=== PATIENT | female | born 1995 | race Caucasian/White ===

== ENCOUNTER 2018-01-21 12:12 | Emergency (ER) | payer OTHER, SELFPAY ==
--- NOTE | 2018-01-21 12:17 | ED.BACK ---
HPI - Back Pain/Injury <Ping Reed PA-C - Last Filed: 01/21/18 18:15> General Chief Complaint: Back Pain/Injury Stated Complaint: BACK PAIN Time Seen by Provider: 01/21/18 12:16 Source: patient Mode of arrival: ambulatory Limitations: no limitations History of Present Illness HPI Narrative: This generally healthy 23-year-old comes in today due to onset of low back pain at work over the last 2 days. 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 She denies any other trauma. She states that she occasionally has shooting pain in her left side for a long time, no changes there. She states that she has not had any weakness or paresthesia in her extremities. Pain can radiate into her mid back a little bit but not down in all into the gluteal area or legs. She has not had any bowel or bladder habit changes. She has not had any new fever. She denies any other new symptoms on systems review. She denies any possibility of due to abstinence currently. Related Data Previous Rx's Medication Instructions Recorded albuterol sulfate [Ventolin HFA] 2 puff INH Q4HP PRN #1 ea 07/12/17 fluticasone [Flovent HFA] 1 puff INH BID #1 inh 10/21/17 cyclobenzaprine 10 mg PO Q8H PRN #14 tab 01/21/18 naproxen 500 mg PO Q12H PRN #20 tab 01/21/18 Allergies Allergy/AdvReac Type Severity Reaction Status Date / Time No Known Allergies Allergy Uncoded 11/27/17 12:18 Review of Systems <Ping Reed PA-C - Last Filed: 01/21/18 18:15> Review of Systems All systems reviewed & are unremarkable except as noted in HPI and below Exam <Ping Reed PA-C - Last Filed: 01/21/18 18:15> Narrative Exam Narrative: GENERAL APPEARANCE: Patient sitting comfortably, in no distress. DERM: No exanthem MUSCULOSKELETAL: No point tenderness over the lumbar spine. Tender throughout the lumbar musculature bilaterally, left more than right. Muscles are somewhat tight palpably. Reduced seated trunk range of motion in all matos secondary to tenderness. Normal sit:stand and gait. Lower extremity strength 5/5 bilateral hip flexors, knee extensors, foot plantar flexion. Negative modified straight leg raise NEUROLOGIC: Bilateral patellar and Achilles DTRs 1+ with distraction Initial Vital Signs Initial Vital Signs: Vital Signs Temperature 98.1 F 01/21/18 12:25 Pulse Rate 92 H 01/21/18 12:25 Respiratory Rate 16 01/21/18 12:25 Blood Pressure 133/94 H 01/21/18 12:25 Pulse Oximetry 100 01/21/18 12:25 <Shahab Crowe MD - Last Filed: 02/20/18 06:54> Initial Vital Signs Initial Vital Signs: Vital Signs Temperature 98.1 F 01/21/18 12:25 Pulse Rate 92 H 01/21/18 12:25 Respiratory Rate 16 01/21/18 12:25 Blood Pressure 133/94 H 01/21/18 12:25 Pulse Oximetry 100 01/21/18 12:25 Course <Ping Reed PA-C - Last Filed: 01/21/18 18:15> Hospital Course: Patient was given instructions and work note re: light duty and L & I paperwork completed prior to d/c Vital Signs - 8 hr 01/21/18 12:25 Temperature 98.1 F Pulse Rate 92 H Respiratory Rate 16 Blood Pressure 133/94 H Pulse Oximetry 100 <Shahab Crowe MD - Last Filed: 02/20/18 06:54> Vital Signs - 8 hr 01/21/18 12:25 Temperature 98.1 F Pulse Rate 92 H Respiratory Rate 16 Blood Pressure 133/94 H Pulse Oximetry 100 Discharge Plan Departure Patient Disposition: Home, Self-Care Clinical Impression: Acute myofascial strain of lumbar region Discharge Date/Time: 01/21/18 13:15 Interventions: ED Discharge Assessment Last Done: 01/21/18 13:14 Instructions: DI for Back Strain or Sprain Activity Restrictions/Additional Instructions: Take prescription anti-inflammatory naproxen twice daily (not with other NSAIDs), and take the muscle relaxant cyclobenzaprine as needed (do not take the cyclobenzaprine and drive as that can make you sleepy). You should return if you have any acutely worsening symptoms, otherwise you should do light duty at work as we talked about. Follow up with your PCP next week to assess progress and see whether further treatment, such as physical therapy is needed Prescriptions: New naproxen 500 mg tablet 500 mg PO Q12H PRN (Reason: pain) Qty: 20 RF: 0 cyclobenzaprine 10 mg tablet 10 mg PO Q8H PRN (Reason: back pain/spasm) Qty: 14 RF: 0 No Action albuterol sulfate [Ventolin HFA] 90 MCG/PUFF HFA aerosol inhaler 2 puff INH Q4HP PRNQty: 1 RF: 1 fluticasone [Flovent HFA] 12 GM HFA aerosol inhaler 1 puff INH BID Qty: 1 RF: 1 Referrals: Alesia Knutson MD [Primary Care Provider] - Stand Alone Forms: Work/School Restrictions <Shahab Crowe MD - Last Filed: 02/20/18 06:54> Cosign ED Attending Cosignature Attestation: The PA/[employer]ER functioned independently for the care of this pt, I was available, but not asked to participate in care. I am unable to determine appropriateness of management without personally examining the pt.
[2018-01-21 12:25] VITALS: BP 133/94; PULSE 92; RESP 16; TEMP 36.7; O2SAT 100; BMI 25.8
== END 2018-01-21 13:15 | disposition home or self-care (01) ==
PROVIDERS: Emergency Provider Internal Medicine; PCP Family Medicine
DX: S39.012A Strain of muscle, fascia and tendon of lower back, initial encounter (principal); Y93.F2 Activity, caregiving, lifting; Y99.0 Civilian activity done for income or pay
CPT/HCPCS: 99282

== ENCOUNTER 2018-02-10 14:14 | Emergency (ER) | payer OTHER, SELFPAY ==
--- NOTE | 2018-02-10 14:23 | ED.ABDPAIN ---
HPI - Abdominal Pain <CHRISTOPHER Baires - Last Filed: 02/10/18 22:09> General Chief Complaint: Medical Clearance Stated Complaint: NEEDS A RETURN TO WORK FORM Time Seen by Provider: 02/10/18 14:23 History of Present Illness HPI narrative: 23-year-old healthy female here for know to return to work. She was seen earlier this month here in the emergency room for lower back pain that she obtained while at work. She followed up with her primary care provider however primary for care provider does not perform L and I claims so she is here in the emergency room to get a note return to work. She states that her back pain is better at this timeframe. She denies any pain in her lower back now. She denies any loss of bladder or bowel control. She is ambulatory to the emergency room with no other concerns or complaints. complaint: other Related Data Previous Rx's Medication Instructions Recorded albuterol sulfate [Ventolin HFA] 2 puff INH Q4HP PRN #1 ea 07/12/17 fluticasone [Flovent HFA] 1 puff INH BID #1 inh 10/21/17 cyclobenzaprine 10 mg PO Q8H PRN #14 tab 01/21/18 naproxen 500 mg PO Q12H PRN #20 tab 01/21/18 Allergies Allergy/AdvReac Type Severity Reaction Status Date / Time No Known Allergies Allergy Uncoded 11/27/17 12:18 Review of Systems <CHRISTOPHER Baires - Last Filed: 02/10/18 22:09> Constitutional Denies chills, Denies fever(s), Denies lethargy and Denies weakness Eyes Denies change in vision, Denies eye discharge, Denies irritation and Denies loss of vision ENT Ears, Nose, Mouth, and Throat: Denies change in voice, Denies neck pain and Denies sore throat Cardiovascular Denies chest pain, Denies irregular heart rhythm, Denies lightheadedness, Denies palpitations, Denies dyspnea, Denies dyspnea on exertion and Denies orthopnea Respiratory Denies cough, Denies dyspnea, Denies dyspnea on exertion and Denies wheezing Gastrointestinal Gastrointestinal: Denies abdominal pain, Denies change in bowel habits, Denies diarrhea, Denies nausea and Denies vomiting Genitourinary Denies hematuria, Denies flank pain, Denies urinary incontinence and Denies urinary urgency Musculoskeletal Denies neck pain Integumentary/Breasts Denies pruritus, Denies erythema, Denies rash and Denies wounds Neurologic Denies confusion, Denies loss of vision and Denies weakness Psychiatric Denies anxiety, Denies confusion, Denies depression, Denies homicidal ideation and Denies suicidal ideation Endocrine Denies palpitations Hematologic/Lymphatic Denies easy bruising Allergic/Immunologic Denies wheezing Exam <CHRISTOPHER Baires - Last Filed: 02/10/18 22:09> Initial Vital Signs Initial Vital Signs: Vital Signs Temperature 97.1 F L 02/10/18 14:31 Pulse Rate 86 02/10/18 14:31 Respiratory Rate 16 02/10/18 14:31 Blood Pressure 126/89 H 02/10/18 14:31 Pulse Oximetry 98 02/10/18 14:31 Const General: cooperative and well developed Nutritional Appearance: well nourished Orientation: alert, awake, oriented x3 and not confused HENMT Mouth: oral mucosae normal and moist mucous membranes Eyes Conjunctivae: conjunctivae normal Sclera: sclerae normal Pupils: PERRL EOM: EOM intact bilaterally Resp Effort & Inspection: normal respiratory effort, able to speak in complete sentences, no respiratory distress and no use of accessory muscles Auscultation: clear to auscultation bilaterally, no rales, no rhonchi and no wheezes Cardio Rate: regular rate Rhythm: regular rhythm Heart Sounds: no click, no gallops, no murmurs and no rubs Back/Spine/Pelvis Back: No CVA tenderness Thoracic/Lumbar Spine: thoracic and lumbar spine normal to inspection <John Morgan DO - Last Filed: 02/12/18 20:27> Initial Vital Signs Initial Vital Signs: Vital Signs Temperature 97.1 F L 02/10/18 14:31 Pulse Rate 86 02/10/18 14:31 Respiratory Rate 16 02/10/18 14:31 Blood Pressure 126/89 H 02/10/18 14:31 Pulse Oximetry 98 02/10/18 14:31 Course <CHRISTOPHER Baires - Last Filed: 02/10/18 22:09> Vital Signs - 8 hr 02/10/18 14:31 Temperature 97.1 F L Pulse Rate 86 Respiratory Rate 16 Blood Pressure 126/89 H Pulse Oximetry 98 <John Morgan DO - Last Filed: 02/12/18 20:27> Vital Signs - 8 hr 02/10/18 14:31 Temperature 97.1 F L Pulse Rate 86 Respiratory Rate 16 Blood Pressure 126/89 H Pulse Oximetry 98 MDM - Abdominal Pain <CHRISTOPHER Baires - Last Filed: 02/10/18 22:09> MDM Narrative Medical decision making narrative: Patient with no complaints or lower back pain at this timeframe. She is cleared to return to work. Follow up with primary care provider. Return emergency room for worsening symptoms. Discharge Plan Departure Patient Disposition: Home, Self-Care Clinical Impression: Lower back pain Discharge Date/Time: 02/10/18 15:14 Interventions: ED Discharge Assessment Last Done: 02/10/18 15:14 Instructions: DI for Low Back Pain Activity Restrictions/Additional Instructions: Normal exam today. You were cleared to return to work. Follow up with her primary care provider. Return emergency room for any worsening symptoms. Prescriptions: No Action albuterol sulfate [Ventolin HFA] 90 MCG/PUFF HFA aerosol inhaler 2 puff INH Q4HP PRNQty: 1 RF: 1 fluticasone [Flovent HFA] 12 GM HFA aerosol inhaler 1 puff INH BID Qty: 1 RF: 1 naproxen 500 mg tablet 500 mg PO Q12H PRN (Reason: pain) Qty: 20 RF: 0 cyclobenzaprine 10 mg tablet 10 mg PO Q8H PRN (Reason: back pain/spasm) Qty: 14 RF: 0 Referrals: Alesia Knutson MD [Primary Care Provider] - <John Morgan DO - Last Filed: 02/12/18 20:27> Cosign ED Attending Barrettature Attestation: I was immediately available in the department for consultation. Documentation has been reviewed. I agree with assessment and plan.
[2018-02-10 14:31] VITALS: BP 126/89; PULSE 86; RESP 16; TEMP 36.2; O2SAT 98; BMI 25.8
--- NOTE | 2018-02-10 14:33 | PC.NURSE ---
pt will return,she is moving her vehicle from one parking lot to another.
--- NOTE | 2018-02-10 15:13 | PC.NURSE ---
requesting return to work clearance r/t back injury <1 week ago, denies further pain or discomfort, seen by primary today for same and sent to ED for paperwork
== END 2018-02-10 15:14 | disposition home or self-care (01) ==
PROVIDERS: Emergency Provider Nurse Practitioner Family; PCP Family Medicine
DX: M54.5 Low back pain (principal)
CPT/HCPCS: 99282

== ENCOUNTER → 2018-04-09 11:40 | Outpatient (CLI) | payer OTHER, MEDICAID, SELFPAY ==
[2018-04-09 16:16] LABS: Urine N gonorrhoeae NOT DETECTED
[2018-04-09 16:37] LABS: Urine Chlamydia NOT DETECTED
== END ==
PROVIDERS: PCP Family Medicine; Visit Provider Family Medicine
DX: Z11.3 Encounter for screening for infections with a predominantly sexual mode of transmission (principal)
CPT/HCPCS: 87491; 87591